=== PATIENT | female | born 1955 | race Caucasian/White ===

== ENCOUNTER 2023-04-25 09:58 | Outpatient (CLI) | payer OTHER, MEDICARE, SELFPAY ==
--- NOTE | 2023-04-25 10:15 | CRLHL7_ITS ---
For Patients: As a result of the Century Cures Act, medical imaging exams and procedure reports are released immediately into your electronic medical record. You may view this report before your referring provider. If you have questions, please contact your health care provider. BILATERAL SCREENING MAMMOGRAM WITH COMPUTER-AIDED DETECTION TECHNIQUE: CC and MLO views were obtained. These mammographic images have been obtained using full-field digital technique. These mammographic images were interpreted with the benefit of computer-aided detection. COMPARISON FILM: 11/03/21, 08/31/20, 10/24/18. FINDINGS: The breasts are heterogeneously dense, which may obscure small masses IMPRESSION: There is no radiographic evidence for malignancy. ASSESSMENT: BI-RADS Category 1: Negative RECOMMENDATION: Routine screening mammogram in 1 year. A lay language report of this examination will be provided to the patient. Bismark Patel M.D. Diagnostic Radiologist [email or web address] ABDIFATAH/Dictated by: Bismark Patel MD @ 04/25/2023 12:23:00 PM (Electronically Signed)
== END 2023-04-25 09:59 | disposition home or self-care (01) ==
LOC: MAMMO 10:04
PROVIDERS: PCP Family Medicine; Visit Provider Family Medicine
DX: Z12.31 Encounter for screening mammogram for malignant neoplasm of breast (principal); R92.2 Inconclusive mammogram
CPT/HCPCS: 77067

== ENCOUNTER 2024-03-10 07:46 | Outpatient (CLI) | payer OTHER, SELFPAY | END 2024-03-10 07:47 | disposition home or self-care (01) | LOC: NFLDREF 13:12 | PROVIDERS: PCP Family Medicine; Referring Provider Family Medicine; Visit Provider Family Medicine | DX: E87.5 Hyperkalemia (principal); E78.5 Hyperlipidemia, unspecified; M85.80 Other specified disorders of bone density and structure, unspecified site | CPT/HCPCS: 80053; 80061; 82306 ==

== ENCOUNTER 2025-06-19 07:51 | Outpatient (CLI) | payer OTHER, SELFPAY | END 2025-06-19 07:52 | disposition home or self-care (01) | LOC: NFLDREF 06-24 17:46 | PROVIDERS: PCP Family Medicine; Referring Provider Family Medicine; Visit Provider Family Medicine | DX: Z00.00 Encounter for general adult medical examination without abnormal findings (principal); E78.5 Hyperlipidemia, unspecified; R73.9 Hyperglycemia, unspecified; M85.80 Other specified disorders of bone density and structure, unspecified site | CPT/HCPCS: 80053; 80061; 82306 ==